=== PATIENT | female | born 1965 ===

== ENCOUNTER 2017-10-20 15:29 | Emergency (ER) | payer MEDICARE ==
[2017-10-20 15:30] VITALS: BMI 31.1
[2017-10-20] MEDS ORDERED: Oxycodone/Acetaminophen 5/325 mg Tab PO STA (16:41)
--- NOTE | 2017-10-20 16:46 | RAD ---
PROCEDURE: Chest left rib series dated 10/20/2017. . HISTORY: Trauma. COMPARISON: Comparison made with prior chest radiograph dated 04/23/2014. TECHNIQUE: Frontal radiograph of the chest and multiple oblique radiographs of the left ribs were obtained. FINDINGS: The interstitial markings are increased and coarsened with scattered peribronchial cuffing changes. Rule out changes of COPD of. There appears to be mildly displaced fractures of the left anterolateral,, 7th and 8th and possibly 6th ribs. Best seen on series 3, image 1 and series 4, image 1. Note that the lower of left ribs are poorly delineated on this exam due to the dense breast tissue as well as bowel related artifact. No definitive evidence of IMPRESSION: There appears be fractures of the left anterolateral 7th, 8th and possibly 6th ribs. No definitive evidence of pneumothorax is identified. . Note that the lower left ribs (9- 12) poorly seen due to dense breast tissue and bowel related artifact. . COPD.
[2017-10-20] MEDS ORDERED: Oxycodone/Acetaminophen 5/325 mg Tab ONE (16:47)
--- NOTE | 2017-10-20 16:58 | C.PDOC ---
History Of Present Illness 51 y/o female presents to ED with complaints of left side rib pain for 4 days. Patient states prior to symptoms she slipped and fell hitting left side of chest on bathtub. Patient reports she has taken OTC pain medication but pain persists. Pain worse with movement which prompted visit to ED today. Patient denies other trauma, head trauma, LOC, abdominal pain, change in diet, sob, or any other complaints at this time. - HPI Time Seen by Provider: 10/20/17 16:21 Chief Complaint (Nursing): Rib Injury History Per: Patient History/Exam Limitations: no limitations Onset/Duration Of Symptoms: Days Past Medical History Reviewed: Historical Data, Nursing Documentation, Vital Signs Vital Signs: Last Vital Signs Temp 98.1 F 10/20/17 17:38 Pulse 75 10/20/17 17:38 Resp 18 10/20/17 17:38 BP 126/75 10/20/17 17:38 Pulse Ox 98 10/20/17 17:38 - Medical History PMH: Anxiety, Back Problems, Depression, Osteoporosis Surgical History: Back Surgery (LUMBAR FUSIONS) - [facility] Procedures INDIVID PSYCHOTHERAP NEC (06/15/13) OTHER GROUP THERAPY (06/15/13) Family History: States: No Known Family Hx - Social History Hx Tobacco Use: Yes Hx Alcohol Use: No Hx Substance Use: No - Immunization History Hx Tetanus Toxoid Vaccination: No Hx Influenza Vaccination: No Hx Pneumococcal Vaccination: No Review Of Systems Constitutional: Negative for: Fever, Chills Cardiovascular: Negative for: Chest Pain Respiratory: Negative for: Shortness of Breath Gastrointestinal: Negative for: Nausea, Vomiting Musculoskeletal: Positive for: Other (Rib pain). Negative for: Neck Pain, Back Pain Neurological: Negative for: Weakness, Numbness Physical Exam - Physical Exam Appears: Non-toxic, Other (pt looks uncomfortable) Skin: Normal Color, Warm, Dry, No Rash Head: Atraumatic, Normacephalic Eye(s): bilateral: Normal Inspection, EOMI Nose: Normal Oral Mucosa: Moist Neck: Normal ROM, Supple Chest: Symmetrical, Tenderness (reproducible pain to Anterolateral chest wall tenderness) Cardiovascular: Rhythm Regular Respiratory: Normal Breath Sounds, No Rales, No Rhonchi, No Wheezing Gastrointestinal/Abdominal: Soft, No Tenderness, No Guarding, No Rebound Neurological/Psych: Oriented x3, Normal Speech ED Course And Treatment O2 Sat by Pulse Oximetry: 97 (RA) Pulse Ox Interpretation: Normal - Other Rad Left chest and rib X-Ray: Viewed By Me, Read By Radiologist Interpretation: PROCEDURE: Chest left rib series dated 10/20/2017. . HISTORY: Trauma. COMPARISON: Comparison made with prior chest radiograph dated 2013. TECHNIQUE: Frontal radiograph of the chest and multiple oblique radiographs of the left ribs were obtained. FINDINGS: The interstitial markings are increased and coarsened with scattered peribronchial cuffing changes. Rule out changes of COPD of. There appears to be mildly displaced fractures of the left anterolateral,, 7th and 8th and possibly 6th ribs. Best seen on series 3, image 1 and series 4, image 1. Note that the lower of left ribs are poorly delineated on this exam due to the dense breast tissue as well as bowel related artifact. No definitive evidence of. IMPRESSION: There appears be fractures of the left anterolateral 7th, 8th and possibly 6th ribs. No definitive evidence of pneumothorax is identified. . Note that the lower left ribs (9- 12) poorly seen due to dense breast tissue and bowel related artifact. . COPD. Progress Note: Discussed incentive Spirometry. CAse discussed with Dr Bruner, who evaluated XR and agreed upon plan and discharge. Patient advised follow up with Dr. Keller in 1-2 days or return to ER if symtpoms persist or worsen. Disposition - Disposition Referrals: Norman Bhakta MD [Staff Provider] - Disposition: HOME/ ROUTINE Disposition Time: 16:57 Condition: STABLE Additional Instructions: Follow up with primary medical doctor in 1-3 days without fail for further evaluation. Take medications as prescribed. Return to the emergency department at any time if symptoms persist or worsen. Prescriptions: oxyCODONE/Acetaminophen [Percocet 5/325 mg Tab] 1 tab PO QID PRN #20 tab PRN Reason: Pain Instructions: Rib Fracture (ED) Forms: [facility] (German) - Clinical Impression Clinical Impression: Rib fractures - PA / CHEMICAL OPERATIONS SPECIALIST / Resident Statement MD/DO has reviewed & agrees with the documentation as recorded. - Scribe Statement The provider has reviewed the documentation as recorded by the Edilma Molina All medical record entries made by the Scribe were at my direction and personally dictated by me. I have reviewed the chart and agree that the record accurately reflects my personal performance of the history, physical exam, medical decision making, and the department course for this patient. I have also personally directed, reviewed, and agree with the discharge instructions and disposition.
[2017-10-20 17:40] VITALS: BP 126/75; PULSE 75; RESP 18; TEMP 98.1
[2017-10-21 08:09] VITALS: O2SAT 97
== END 2017-10-20 17:40 | disposition home or self-care (01) ==
LOC: C.ER 15:29
DX: S22.42XA Multiple fractures of ribs, left side, initial encounter for closed fracture (principal); W01.198A Fall on same level from slipping, tripping and stumbling with subsequent striking against other object, initial encounter; Y92.002 Bathroom of unspecified non-institutional (private) residence as the place of occurrence of the external cause

== ENCOUNTER 2018-08-07 08:22 | Emergency (ER) | payer MEDICARE ==
[2018-08-07 08:22] VITALS: BMI 31.1
--- NOTE | 2018-08-07 08:41 | C.PDOC ---
History Of Present Illness 52 y/o female, with history of back pain, and back surgery, presents to ED for evaluation of lower back pain for the past week. She reports taking Motrin and Naproxen without relief of pain. Otherwise, denies numbness, weakness, or tingling in lower extremities, fever, chills, abdominal pain, dysuria, hematuria , frequency, or bowel/bladder incontinence. Time Seen by Provider: 08/07/18 08:30 Chief Complaint (Nursing): Back Pain History Per: Patient History/Exam Limitations: no limitations Onset/Duration Of Symptoms: Days Current Symptoms Are (Timing): Still Present Quality Of Discomfort: "Pain" Previous Symptoms: Back Pain, Chronic Pain, Prior Surgery. denies: Neck Pain, Prior Injury Associated Symptoms: None. denies: Incontinence, New Weakness, New Numbness Exacerbating Factor(s): Nothing Recent travel outside of the [place]: No Additional History Per: Patient Past Medical History Reviewed: Historical Data, Nursing Documentation, Vital Signs Vital Signs: Last Vital Signs Temp 98.7 F 08/07/18 12:24 Pulse 62 08/07/18 12:24 Resp 22 08/07/18 12:24 BP 128/77 08/07/18 12:24 Pulse Ox 98 08/07/18 12:24 - Medical History PMH: Anxiety, Back Problems, Depression, Osteoporosis Denies: HTN, Chronic Kidney Disease, Seizures, Sexually Transmitted Disease Surgical History: Back Surgery (LUMBAR FUSIONS) - [facility] Procedures INDIVID PSYCHOTHERAP NEC (06/15/13) OTHER GROUP THERAPY (06/15/13) Family History: States: Unknown Family Hx - Social History Hx Tobacco Use: Yes Hx Alcohol Use: No Hx Substance Use: No - Immunization History Hx Tetanus Toxoid Vaccination: No Hx Influenza Vaccination: No Hx Pneumococcal Vaccination: No Review Of Systems Except As Marked, All Systems Reviewed And Found Negative. Constitutional: Negative for: Fever, Chills Gastrointestinal: Negative for: Nausea, Vomiting, Abdominal Pain, Diarrhea, Constipation Genitourinary: Negative for: Dysuria, Frequency, Incontinence, Hematuria, Vaginal Discharge Musculoskeletal: Positive for: Back Pain Neurological: Negative for: Weakness, Numbness Physical Exam - Physical Exam Appears: Non-toxic, No Acute Distress Skin: Normal Color, Warm, Dry Head: Atraumatic, Normacephalic Eye(s): bilateral: Normal Inspection Oral Mucosa: Moist Neck: Normal ROM, Supple Cardiovascular: Rhythm Regular, No Murmur Respiratory: Normal Breath Sounds, No Rales, No Rhonchi, No Wheezing Gastrointestinal/Abdominal: Soft, No Tenderness Back: No CVA Tenderness, No Vertebral Tenderness, Paraspinal Tenderness ( paralumbar) Extremity: Normal ROM, No Deformity Neurological/Psych: Oriented x3, Normal Speech, Normal Motor, Normal Sensation ED Course And Treatment O2 Sat by Pulse Oximetry: 97 (on RA) Pulse Ox Interpretation: Normal Medical Decision Making Medical Decision Making: Plan: Urinalysis Valium Toradol Lidoderm Progress note: On reassessment, pt is resting comfortably, with improvement of back pain. Patient remains afebrile, with no bony tenderness, extremity numbness or weakness, or abdominal pain. Patient is ambulatory in the emergency department with no signs of discomfort. Patient is being discharged home with Rx and is instructed to follow up with PMD in 1-2 days. Disposition - Disposition Referrals: Norman Bhakta MD [Staff Provider] - Disposition: HOME/ ROUTINE Disposition Time: 11:56 Condition: STABLE Additional Instructions: Follow up- with your PMD within 1-2 days. Return to ED if feel worse. Prescriptions: Lidocaine 5% [Lidoderm] 1 patch TP DAILY #30 patch Naproxen [Naprosyn] 1 tab PO BID PRN #25 tab PRN Reason: Pain Methocarbamol [Robaxin-750] 750 mg PO TID #30 tab Instructions: Low Back Pain (DC) Forms: [facility] (Armenian) - Clinical Impression Clinical Impression: Low back pain - PA / MANAGER STATISTICS / Resident Statement MD/DO has reviewed & agrees with the documentation as recorded. - Scribe Statement The provider has reviewed the documentation as recorded by the Nathanielibnusrat Seo All medical record entries made by the Nathanielibnusrat were at my direction and personally dictated by me. I have reviewed the chart and agree that the record accurately reflects my personal performance of the history, physical exam, medical decision making, and the department course for this patient. I have also personally directed, reviewed, and agree with the discharge instructions and disposition.
[2018-08-07] MEDS ORDERED: Lidocaine 5% Patch TD STA (09:11)
[2018-08-07] MEDS ORDERED: Lidocaine 5% Patch TD ONE (09:17)
[2018-08-07 09:48] LABS: SQUAMOUS EPITHIAL < 1 /hpf (0-5); URINE BACTERIA RARE (<OCC); URINE BILIRUBIN NEGATIVE (NEGATIVE); URINE BLOOD 2+ (NEGATIVE); URINE CLARITY Clear (Clear); URINE COLOR Straw (YELLOW); URINE GLUCOSE (UA) NORMAL (Normal); URINE LEUKOCYTE ESTERASE NEG Leu/uL (Negative); URINE PROTEIN NEGATIVE (NEGATIVE); URINE UROBILINOGEN NORMAL mg/dL (0.2-1.0)
[2018-08-07 12:36] VITALS: BP 128/77; PULSE 62; RESP 22; TEMP 98.7
[2018-08-07 17:18] VITALS: O2SAT 97
== END 2018-08-07 12:24 | disposition home or self-care (01) ==
LOC: C.ER 08:22
DX: M54.5 Low back pain (principal)
CPT/HCPCS: 81001; 96372; 99284; J1885

== ENCOUNTER 2018-12-28 10:03 | Emergency (ER) | payer MEDICARE ==
[2018-12-28 10:03] VITALS: BMI 31.1
[2018-12-28 10:31] VITALS: PULSE 82
[2018-12-28] MEDS ORDERED: Sodium Chloride 0.9% 1,000 ML IV ONE (11:18)
[2018-12-28 11:31] LABS: BASO % 0.5 % (0.0-2.0); EOS # 0.1 K/uL (0.0-0.7); EOS % 1.7 % (0.0-4.0); HEMOGLOBIN 15.5 g/dL (11.0-16.0); LYMPH # 1.4 K/uL (1.0-4.3); LYMPH % 20.2 % (20.0-40.0); MEAN CELL VOLUME 94.6 fL (81.0-99.0); MEAN CORPUSCULAR HEMOGLOBIN 31.7 pg (27.0-31.0); MEAN CORPUSCULAR HGB CONC 33.5 g/dL (33.0-37.0); MEAN PLATELET VOLUME 9.1 fL (7.2-11.7); MONO # 0.4 K/uL (0.0-0.8); MONO % 6.3 % (0.0-10.0); NEUT # 4.8 K/uL (1.8-7.0); NEUT % 71.3 % (50.0-75.0); RBC 4.89 Mil/uL (3.80-5.20); RED CELL DISTRIBUTION WIDTH 12.9 % (11.5-14.5); WHITE BLOOD COUNT 6.7 K/uL (4.8-10.8)
--- NOTE | 2018-12-28 11:35 | C.PDOC ---
History Of Present Illness 52 y/o female,w/PMhx of osteoporosis, presents to the ER complaining of nausea, vomiting, abdominal pain, and diarrhea which has been present for the past 3 days. Patient states that she multiple episodes of vomiting and diarrhea.She is also complaining of chills, headache, runny nose ,cough, and body aches. Denies having fever,dysuria, and hematuria. Time Seen by Provider: 12/28/18 10:51 Chief Complaint (Nursing): Abdominal Pain History Per: Patient History/Exam Limitations: no limitations Onset/Duration Of Symptoms: Days Current Symptoms Are (Timing): Still Present Severity: Moderate Past Medical History Reviewed: Historical Data, Nursing Documentation, Vital Signs Vital Signs: Last Vital Signs Temp 98.7 F 12/28/18 10:24 Pulse 82 12/28/18 10:24 Resp 20 12/28/18 10:24 BP 117/78 12/28/18 10:24 Pulse Ox 96 12/28/18 10:24 - Medical History PMH: Anxiety, Back Problems, Depression, Osteoporosis Denies: HTN, Chronic Kidney Disease, Seizures, Sexually Transmitted Disease Surgical History: Back Surgery (LUMBAR FUSION) - [facility] Procedures INDIVID PSYCHOTHERAP NEC (06/15/13) OTHER GROUP THERAPY (06/15/13) Family History: States: No Known Family Hx - Social History Hx Tobacco Use: Yes Hx Alcohol Use: No Hx Substance Use: No - Immunization History Hx Tetanus Toxoid Vaccination: No Hx Influenza Vaccination: No Hx Pneumococcal Vaccination: No Review Of Systems Except As Marked, All Systems Reviewed And Found Negative. Constitutional: Positive for: Chills. Negative for: Fever ENT: Positive for: Nose Discharge Cardiovascular: Negative for: Chest Pain Respiratory: Positive for: Cough. Negative for: Shortness of Breath Gastrointestinal: Positive for: Nausea, Vomiting, Abdominal Pain, Diarrhea Neurological: Positive for: Headache Physical Exam - Physical Exam Appears: Well Skin: Normal Color, Warm, Dry Head: Atraumatic, Normacephalic Eye(s): bilateral: Normal Inspection Nose: Normal Oral Mucosa: Moist Throat: Normal, No Erythema, No Exudate Neck: Supple Chest: Symmetrical Cardiovascular: Rhythm Regular Respiratory: Normal Breath Sounds, No Rales, No Rhonchi, No Wheezing Gastrointestinal/Abdominal: Soft, Tenderness (diffuse tenderness), No Guarding, No Rebound, Other (obese) Neurological/Psych: Oriented x3, Normal Speech ED Course And Treatment - Laboratory Results Result Diagrams: 12/28/18 11:26 12/28/18 11:26 O2 Sat by Pulse Oximetry: 96 (RA) Pulse Ox Interpretation: Normal Medical Decision Making Medical Decision Making: Differential Diagnoses Gastroenteritis vs. Flu Plan: --Labs --UA --IV Fluids --Zofran IV Disposition Counseled Patient/Family Regarding: Diagnosis, Need For Followup, Rx Given - Disposition Disposition: HOME/ ROUTINE Disposition Time: 13:29 Condition: STABLE Prescriptions: Ondansetron ODT [Zofran ODT] 1 odt PO BID PRN #6 odt PRN Reason: Nausea/Vomiting Instructions: Viral Gastroenteritis Forms: [facility] ([place] Islander), General Discharge Instructions, Work Excuse - POA Present On Arrival: None - Clinical Impression Clinical Impression: Gastroenteritis - Scribe Statement The provider has reviewed the documentation as recorded by the Edilma Renteria Provider Attestation: All medical record entries made by the Scribe were at my direction and personally dictated by me. I have reviewed the chart and agree that the record accurately reflects my personal performance of the history, physical exam, medical decision making, and the department course for this patient. I have also personally directed, reviewed, and agree with the discharge instructions and disposition.
[2018-12-28 11:43] LABS: ALB/GLOB RATIO 1.6 (1.0-2.1); ALT/SGPT 121 U/L (9-52); AST/SGOT 80 U/L (14-36); BLOOD UREA NITROGEN 11 mg/dL (7-17); CALCIUM 10.1 mg/dl (8.6-10.4); GFR NON-AFRICAN AMERICAN > 60
[2018-12-28 12:17] LABS: SQUAMOUS EPITHIAL < 1 /hpf (0-5); URINE BILIRUBIN NEGATIVE (NEGATIVE); URINE BLOOD NEGATIVE (NEGATIVE); URINE CLARITY Clear (Clear); URINE COLOR Yellow (YELLOW); URINE GLUCOSE (UA) NORMAL (Normal); URINE LEUKOCYTE ESTERASE NEG Leu/uL (Negative); URINE PROTEIN NEGATIVE (NEGATIVE); URINE UROBILINOGEN NORMAL mg/dL (0.2-1.0)
[2018-12-28 13:57] VITALS: BP 107/71; RESP 18; TEMP 99.3; O2SAT 95
== END 2018-12-28 13:59 | disposition home or self-care (01) ==
LOC: C.ER 10:03
DX: K52.9 Noninfective gastroenteritis and colitis, unspecified (principal)
CPT/HCPCS: 80053; 81001; 85025; 96374; 99284; J2405; J7030